=== PATIENT | male | born 1980 | race Caucasian/White ===

== ENCOUNTER 2022-01-06 08:41 | Outpatient (CLI) | payer BC, SELFPAY ==
--- NOTE | 2022-01-06 11:15 | NEURO_ITS ---
Impression: # Complains of numbness of hands. # Bilateral ulnar neuropathy across the elbows. # Evolving Carpal Tunnel Syndrome. # Needle/EMG exam not requested. Motor Nerve Conduction Upper Extremities Median Nerve Conduction Velocity (m/sec) Terminal Latency (msec) Response Voltage(mV) Elbow-Wrist Wrist Elbow Wrist Right 57 3.8 3 4 Left 56 3.6 2 2 Ulnar Nerve Conduction Velocity (m/sec) Terminal Latency (msec) Response Voltage(mV) Above Elbow Below Elbow Wrist Above Elbow Below Elbow Wrist Right 51 56 2.8 4 4 5 Left 55 66 2.8 4 4 3 F-Wave Latency Median (ms) Ulnar (ms) Right 29.4 29.6 Left 28.9 29.5 Sensory Nerve Conduction Upper Extremities Median Nerve Stimulation Terminal Latency (msec) Wrist/Digit Response Voltage (uV) Wrist Right 3.3/3.7 33/25 Left 3.3/3.3 46/56 Ulnar Nerve Stimulation Terminal Latency (msec) Wrist/Digit Response Voltage (uV) Wrist Right 2.4 28 Left 2.5 35 Radial Nerve Terminal Latency (msec) Response Voltage(mV) Right 2.2 22 Left 2.0 15 MTDD
== END 2022-01-06 08:42 | disposition home or self-care (01) ==
LOC: ANHNEURO 08:42
PROVIDERS: PCP Family Medicine; Visit Provider Plastic Surgery
DX: R20.2 Paresthesia of skin (principal); G56.23 Lesion of ulnar nerve, bilateral upper limbs
CPT/HCPCS: 95911

== ENCOUNTER 2022-12-16 01:13 | Day surgery (SDC) | payer BC, SELFPAY ==
[2022-12-06 14:37] VITALS: BMI 31.8
--- NOTE | 2022-12-06 14:43 | PC.NURSE ---
Report to the Outpatient Waiting Room, entrance under the green pavilion located off [facility], at time 1000 on date 12/16/22. Planned Procedure Time: 1200. Time changes happen often and if your time is changed the preop area will call you the afternoon before. - You and your visitor will be asked to self-screen and do not enter if you have any COVID symptoms. - A mask is optional within the hospital at this time. Patients may have clear liquids (water, carbonated beverages, clear teas, apple juice) until 3 hours prior to surgery with a maximum of 20 ounces. - No food from midnight until time of surgery Take the following medications with a SIP of water the morning of surgery: NONE DO NOT STOP ANY OF YOUR OTHER PRESCRIPTION MEDICATIONS PRIOR TO SURGERY ?EXCEPT THE FOLLOWING Medications to discontinue per physician: N/A Date to take last dose: N/A Please no make-up, nail hong konger, hairspray, perfume, deodorant, or body powder the day of surgery. No jewelry (including any body piercings) or valuables the day of surgery, leave them at home. Please take a shower or bath the night before, or the morning of, surgery with an antibacterial soap. Wear comfortable, loose fitting clothing. - Jewelry must be removed prior to entering the operating room. Rings and piercings that are not removed may be cut off. - The hospital will not accept responsibility for valuables. - Please leave all valuables, including medications, at home the day of surgery. If you are going home after surgery, a licensed dedicated driver must drive you home. - NO public transportation without another adult if you receive anesthesia. - We recommend that an adult stay with you for 24 hours following discharge. - We also recommend that you do not drive, make important decision, drink alcoholic beverages, or take any drugs that were not prescribed by your health care provider for at least 24 hours after your discharge time. Follow any additional instructions given to you from your surgeon. If you or anyone in your household have experienced Covid symptoms in the past week, please notify your surgeon or the nurse liaison at the phone number below for possible testing. Telephone instructions given to PT Rupesh GRIJALVA and asked if any additional questions and then verbalized understanding. Patient advised to call surgeon office or pre surgery nurse liaison [phone] if any additional questions.
[2022-12-16] VITALS (8 sets, daily range): BP systolic 132–174; BP diastolic 84–101; PULSE 70–83; RESP 13–20; TEMP 36–36.1; O2SAT 95–100
--- NOTE | 2022-12-16 07:14 | WPDHPUPDATE1 ---
History and Physical Update Update Date/Time: 12/16/22 07:14 History and Physical has been reviewed, including an updated exam of the patient. There are NO changes in the patient's condition. Risks, benefits, and alternatives have been discussed and questions answered. Patient agrees to proceed with procedure.
[2022-12-16] MEDS: LACTATED RINGERS 1,000 ML 30 ML IV CONT ×2 (10:50→14:26)
--- NOTE | 2022-12-16 12:07 | P.PNAN_ITS ---
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 Patient Data Age: 42 Gender: M Height: 1.75 m Weight: 104.1 kg Last Vital Signs Temp 96.9 F L 12/16/22 10:17 Pulse 76 12/16/22 10:17 Resp 20 12/16/22 10:17 BP 132/85 12/16/22 10:17 Pulse Ox 100 12/16/22 10:17 O2 Del Method Room Air 12/16/22 10:17 Allergies Allergy/AdvReac Type Severity Reaction Status Date / Time No Known Allergies Allergy Verified 12/16/22 10:29 Home Medications Medication Instructions Recorded Confirmed Type dextroamphetamine-amphetamine ER 20 mg PO DAILY 12/06/22 12/16/22 History 20 mg 24hr capsule,extend release (Adderall XR) phentermine 37.5 mg tablet 37.5 mg PO DAILY 12/06/22 12/16/22 History Patient hx anesthesia problems: none Family hx anesthesia problems: none Results Review: All pre-operative results and documents have been reviewed as part of the pre- operative evaluation. [facility] Social History Social History Smoking packs per day: 1.5 Smoking cigarettes per day: 30.0 Years smoked: 23 Smoking pack-years: 34.50 Smoking status: Current every day smoker Tobacco type: cigarettes and e-cigarettes/vaping Additional smoking assessment comments: QUIT CIGARETTES 04/07/19, NOW VAPING Alcohol intake: never Substance use: never Substance use type: does not use Living arrangements: with family Spiritual care concerns: No Anes - Eval Final PreProcedure Day of Procedure 12/16/22 12:07 Patient weight: obese Heart: regular rate and rhythm Lungs: clear to auscultation Airway: Mallampati scale class III (states had difficult intubation at the [facility]) Neurological: alert and oriented Last oral intake: >/= 8 hours ASA classification: III Emergent: no Anesthetic plan: proceed Anesthesia type and monitoring: general GIVS (LMA for if needed) and standard monitoring Results Review: All pre-operative results and documents have been reviewed as part of the pre- operative evaluation. Informed Consent: The patient's anesthetic plan and its attendant risks and benefits were discuss ed with the patient/family/POA. Questions were solicited and answers provided to the satisfaction of the patient/family/POA.
[2022-12-16] MEDS: LIDO 1%/EPINEPHRINE 1:100,000 50 ML VIAL 10 ML INFILTRATE (13:26)
--- NOTE | 2022-12-16 14:46 | W.PM.PROC2 ---
Procedure Note - Detailed Date of Procedure 12/16/22 Pre-op Diagnosis Tello Cubital Tunnel Syndrome Post-op Diagnosis Same Procedure Performed Bilateral ulnar neuroplasty at the elbow Surgeon Olayinka Stephenson MD Molding Engineer Patrice LUCERO Description of Procedure The cubital tunnels both extremities were marked with the patient's consent in the holding area. Was then taken to the operating room where he was placed supine on the operating table. He was given sedation anesthesia with an LMA. The 2 extremities were prepped and draped in usual fashion on separate hand tables. The time-out was held and confirmed. The right side was done 1st with marking for release of the cubital tunnel. The site was infiltrated with 1% lidocaine with epinephrine. The extremity was exsanguinated and the tourniquet inflated to 250 mmHg. The incision was made as marked. With mostly blunt dissection the subcutaneous tissue was cleared off the course of the ulnar nerve. This lady just anterior to large triceps muscle. The nerve was easily identified and tracked proximally and distally to completely release it. It appeared on the right side that there was significant intermuscular septum compression. On right side Amaya ligament did not appear to be particularly constructive. The release was continued under the flexor muscle fascia. This was stopped in all directions once a small finger could be passed alongside. The tourniquet was released. Bleeding points were electrocoagulated. The wound was closed with intradermal 3-0 Monocryl sutures at the cross whipple chavarria. The skin was then closed with a intradermal 3-0 Monocryl running stitch. The usual bandage was applied. Attention was turned to the left side the site was again marked and infiltrated with 1% lidocaine with epinephrine. The extremity was exsanguinated tourniquet inflated to 250 mmHg. The incision was made as marked with the elbow flexed and supported on folded towels. Again the nerve was identified relatively easily just proximal to the medial epicondyle were later and to her to the large triceps muscle. On this side there did not appear to be involved with the intermuscular septum. Amaya's ligament was released and the dissection was carried again under the flexor muscle fascia. The tourniquet was released and bleeding points were electrocoagulated. A piece and Surgicel was placed distally where of muscle tended to continue losing. The wound was closed with intradermal 3-0 Monocryl sutures at the cross whipple chavarria. The skin was closed with intradermal 3-0 running Monocryl. The usual bandage applied to that side. Patient is discharged from the operating room stable condition. He has instructions in wound care follow-up and prescription for oxycodone 5/325 number 7 Estimated Blood Loss 10 Tourniquet Time 25 Drains No Packing No Pathology None sent Complications No immediate complications Condition Stable Disposition Same day
== END 2022-12-16 16:14 | disposition home or self-care (01) ==
PROVIDERS: PCP Family Medicine; Visit Provider Plastic Surgery
PROC: (CPT 64718; principal; 2022-12-16 12:00)
DX: G56.23 Lesion of ulnar nerve, bilateral upper limbs (principal); F17.290 Nicotine dependence, other tobacco product, uncomplicated; E66.9 Obesity, unspecified; Z68.33 Body mass index [BMI] 33.0-33.9, adult
CPT/HCPCS: 64718; A9270; J1100; J2250; J2405; J2704; J3010; J7120